=== PATIENT | female | born 1945 | race African-American/Black ===

== ENCOUNTER 2020-06-01 00:15 | Inpatient (IN) ==
[2020-06-01] MEDS ORDERED: LEVOFLOXACIN INJ 500 MG in PREMIX 1 EACH IV STA (00:57)
[2020-06-01 01:00] LABS: Basophils # 0.1 10*3/uL (0.0-0.2); Basophils % 0.4 % (0.0-0.8); Eosinophils % 0.2 % (0.00-10.9); Hematocrit 35.3 VOL% (35.7-47.0); Hemoglobin 11.6 GM/DL (12.0-16.0); Immature Granulocytes % 1.3 %; Immature Granulocytes Absolute 0.17 #; Lymphocytes # 1.4 10*3/uL (1.4-4.0); Lymphocytes % 10.2 % (21.3-54.2); Mean Corpuscular HGB Conc 32.9 GM/DL (32-36); Mean Corpuscular Volume 94.4 FL (87-102); Mean Platelet Volume 10.9 FL (9.6-12.0); NRBC # 0.02 10*3/uL; Neutrophils % 81.9 % (38.7-73.9); Platelet Count 337 T/CUMM (130-400); Red Blood Count 3.74 MC/CUMM (3.8-5.5); White Blood Count 13.6 T/CUMM (4-12)
[2020-06-01 01:01] LABS: INR 1.1; PT Patient Result 11.3 SECS (9.8-11.9)
[2020-06-01 01:19] LABS: Albumin 3.3 G/DL (3.4-5.0); Bilirubin,Total 0.9 MG/DL (0.2-1.0); Calcium 9.2 MG/DL (8.5-10.1); Osmolality,Calculated 284.4 MOS/KG (273-304); Total Protein 7.1 G/DL (6.4-8.3)
[2020-06-01] MEDS ORDERED: ENOXAPARIN 30 MG/0.3 ML SYRINGE SUBCUT STA (01:23)
[2020-06-01] MEDS ORDERED: ENOXAPARIN 80 MG/0.8 ML SYRINGE SUBCUT ONE (01:27)
[2020-06-01] MEDS ORDERED: GLUCAGON 1 MG VIAL IM PRN ×2 (02:23→03:54)
[2020-06-01] MEDS ORDERED: ACETAMINOPHEN 325 MG TABLET PO PRN (02:23)
[2020-06-01] MEDS ORDERED: DEXTROSE 50% 25 GM/50 ML VIAL IV PRN (02:23)
[2020-06-01] MEDS ORDERED: DEXTROSE 50% 25 GM/50 ML SYRINGE IV PRN (03:54)
[2020-06-01] MEDS ORDERED: MORPHINE 4 MG/1 ML VIAL ONE (05:13)
[2020-06-01] MEDS: MORPHINE 4 MG/1 ML VIAL IV PRN ×4 (05:14→21:53)
[2020-06-01] MEDS: ONDANSETRON 4 MG/2 ML VIAL IV PRN ×2 (05:14→09:54)
[2020-06-01 06:48] LABS: Basophils % 0.3 % (0.0-0.8); Eosinophils % 0.1 % (0.00-10.9); Hematocrit 32.9 VOL% (35.7-47.0); Immature Granulocytes % 1.3 %; Immature Granulocytes Absolute 0.15 #; Lymphocytes # 1.3 10*3/uL (1.4-4.0); Lymphocytes % 11.4 % (21.3-54.2); Mean Corpuscular HGB Conc 33.4 GM/DL (32-36); Mean Corpuscular Volume 93.7 FL (87-102); Mean Platelet Volume 10.6 FL (9.6-12.0); Monocytes % 6.6 % (1.7-12.7); Neutrophils % 80.3 % (38.7-73.9); Platelet Count 307 T/CUMM (130-400); Red Blood Count 3.51 MC/CUMM (3.8-5.5); Red Cell Distribution Width 15.3 % (9.3-17.3); White Blood Count 11.6 T/CUMM (4-12)
[2020-06-01] MEDS: INSULIN REGULAR 100 UNIT/ML SUBCUT SCH ×4 (07:33→21:45)
[2020-06-01 07:36] LABS: Bilirubin,Total 0.6 MG/DL (0.2-1.0); Calcium 9.1 MG/DL (8.5-10.1); Ferritin 564.8 ng/ml (8-252); Osmolality,Calculated 284.4 MOS/KG (273-304); Total Protein 6.3 G/DL (6.4-8.3)
[2020-06-01] MEDS: PANTOPRAZOLE 40 MG TABLET PO SCH (09:54)
[2020-06-01] MEDS: DEXAMETHASONE 10 MG/1 ML VIAL IV SCH (09:54)
[2020-06-01 10:14] LABS: Troponin I 0.243 NG/ML (0.00-0.045)
[2020-06-01] MEDS ORDERED: NITROGLYCERIN SL 0.4 MG TABLET SL PRN (11:07)
[2020-06-01] MEDS ORDERED: FLUTICASONE 50 MCG NASAL SPRAY 16 GM BOTTLE BOTH NARES PRN (11:08)
[2020-06-01] MEDS ORDERED: ALBUTEROL INHALER 18 GM INH PRN (11:08)
[2020-06-01] MEDS: ASCORBIC ACID 500 MG TABLET PO SCH (11:11)
[2020-06-01] MEDS: ZINC SULFATE 220 MG CAPSULE PO SCH (11:12)
[2020-06-01] MEDS: CHOLECALCIFEROL 1,000 UNIT TABLET PO SCH (11:12)
[2020-06-01 11:53] LABS: Bilirubin,Urine Small mg/dL (Negative); Blood, Urine Negative (Negative); Glucose,Urine (UA) Negative (Negative); Hyaline Casts,Urine 13 /LPF (0-3); Ketones,Urine Negative (Negative); Mucus,Urine Many /LPF (Occasional); Nitrite,Urine Negative (Negative); Protein,Urine 30 MG/DL; RBC,Urine 3 /HPF (0-4); Squamous Epithelial Cell,Urine Moderate /HPF (0-10); Urine Appearance Slightly Hazy (Clear); Urine Color Amber (Yellow); Urine Specific Gravity 1.028 (1.001-1.035); WBC,Urine 2 /HPF (0-6)
[2020-06-01] MEDS ORDERED: SODIUM CHLORIDE 0.9% 100 ML IV ONE (12:02)
[2020-06-01] MEDS: AZITHROMYCIN 250 MG TABLET PO SCH (12:08)
[2020-06-01] MEDS: cefTRIAXone 1,000 MG in SYRINGE 1 EACH IV SCH (12:08)
[2020-06-01 12:36] LABS: Troponin I 0.266 NG/ML (0.00-0.045)
[2020-06-01] MEDS: PREGABALIN 75 MG CAPSULE PO SCH ×2 (15:55→21:45)
[2020-06-01 16:47] LABS: Cancer Antigen 19-9 28.2 U/ML (0-37); Carcinoembryonic Antigen 0.6 NG/ML (0.0-5.0)
[2020-06-01] MEDS: ENOXAPARIN 40 MG/0.4 ML SYRINGE SUBCUT SCH (21:45)
[2020-06-01] MEDS: CETIRIZINE 10 MG TABLET PO SCH (21:45)
[2020-06-01] MEDS: ZALEPLON 5 MG CAPSULE PO PRN (21:53)
[2020-06-02 05:01] LABS: Basophils % 0.1 % (0.0-0.8); Hematocrit 32.2 VOL% (35.7-47.0); Hemoglobin 10.8 GM/DL (12.0-16.0); Immature Granulocytes % 1.2 %; Immature Granulocytes Absolute 0.12 #; Lymphocytes # 1.1 10*3/uL (1.4-4.0); Lymphocytes % 10.2 % (21.3-54.2); Mean Corpuscular HGB Conc 33.5 GM/DL (32-36); Mean Corpuscular Volume 92.8 FL (87-102); Mean Platelet Volume 11.3 FL (9.6-12.0); Monocytes % 5.6 % (1.7-12.7); Neutrophils % 82.9 % (38.7-73.9); Platelet Count 331 T/CUMM (130-400); Red Blood Count 3.47 MC/CUMM (3.8-5.5); White Blood Count 10.3 T/CUMM (4-12)
[2020-06-02 05:18] LABS: Calcium 8.7 MG/DL (8.5-10.1)
[2020-06-02] MEDS ORDERED: ERGOCALCIFEROL 50,000 UNIT CAPSULE PO SCH (09:00)
[2020-06-02] MEDS: PANTOPRAZOLE 40 MG TABLET PO SCH (09:12)
[2020-06-02] MEDS: MELOXICAM 7.5 MG TABLET PO SCH (09:12)
[2020-06-02] MEDS: amLODIPine 5 MG TABLET PO SCH (09:12)
[2020-06-02] MEDS: LINACLOTIDE 145 MCG CAPSULE PO SCH (09:13)
[2020-06-02] MEDS: lisinopriL 20 MG TABLET PO SCH (09:13)
[2020-06-02] MEDS: PREGABALIN 75 MG CAPSULE PO SCH ×3 (09:14→21:03)
[2020-06-02] MEDS: POTASSIUM CHLORIDE 20 MEQ TABLET PO SCH (09:14)
[2020-06-02] MEDS: INSULIN REGULAR 100 UNIT/ML SUBCUT SCH ×4 (09:14→21:03)
[2020-06-02] MEDS: ATORVASTATIN 40 MG TABLET PO SCH (09:14)
[2020-06-02] MEDS: FUROSEMIDE 20 MG TABLET PO SCH (09:14)
[2020-06-02] MEDS: LEVOTHYROXINE 50 MCG TABLET PO SCH (09:15)
[2020-06-02] MEDS ORDERED: CYANOCOBALAMIN 1000 MCG/1 ML VIAL SUBCUT ONE (11:27)
[2020-06-02] MEDS: ASPIRIN EC 81 MG TABLET PO SCH (12:30)
[2020-06-02] MEDS: AZITHROMYCIN 250 MG TABLET PO SCH (12:31)
[2020-06-02] MEDS: cefTRIAXone 1,000 MG in SYRINGE 1 EACH IV SCH (12:31)
[2020-06-02] MEDS: DEXAMETHASONE 10 MG/1 ML VIAL IV SCH (12:31)
[2020-06-02] MEDS: CHOLECALCIFEROL 1,000 UNIT TABLET PO SCH (12:32)
[2020-06-02] MEDS: BISACODYL 5 MG TABLET PO PRN (12:35)
[2020-06-02] MEDS: ASCORBIC ACID 500 MG TABLET PO SCH (15:03)
[2020-06-02] MEDS: CETIRIZINE 10 MG TABLET PO SCH (21:03)
[2020-06-02] MEDS: ENOXAPARIN 40 MG/0.4 ML SYRINGE SUBCUT SCH (21:03)
[2020-06-03 05:20] LABS: Basophils % 0.2 % (0.0-0.8); Hematocrit 31.9 VOL% (35.7-47.0); Hemoglobin 10.6 GM/DL (12.0-16.0); Immature Granulocytes Absolute 0.12 #; Lymphocytes # 0.9 10*3/uL (1.4-4.0); Lymphocytes % 7.4 % (21.3-54.2); Mean Corpuscular HGB Conc 33.2 GM/DL (32-36); Mean Corpuscular Volume 94.1 FL (87-102); Mean Platelet Volume 11.7 FL (9.6-12.0); Monocytes % 3.5 % (1.7-12.7); Neutrophils % 87.9 % (38.7-73.9); Platelet Count 286 T/CUMM (130-400); Red Blood Count 3.39 MC/CUMM (3.8-5.5); Red Cell Distribution Width 14.8 % (9.3-17.3); White Blood Count 11.9 T/CUMM (4-12)
[2020-06-03 05:50] LABS: Calcium 8.6 MG/DL (8.5-10.1); Osmolality,Calculated 282.7 MOS/KG (273-304)
[2020-06-03] MEDS: LEVOTHYROXINE 50 MCG TABLET PO SCH (06:03)
[2020-06-03] MEDS ORDERED: PROMETHAZINE 25 MG/1 ML VIAL IM ONE (07:30)
[2020-06-03] MEDS ORDERED: GLYCOPYRROLATE 0.4 MG/2 ML VIAL IM ONE ×2 (07:30→08:00)
[2020-06-03] MEDS ORDERED: MEPERIDINE 50 MG/1 ML VIAL IM ONE (07:30)
[2020-06-03] MEDS ORDERED: LIDOCAINE 2% VISCOUS 100 ML BOTTLE SWISH/SPIT ONE (08:00)
[2020-06-03] MEDS ORDERED: LIDOCAINE 1% 20 ML VIAL MISC INJ ONE (08:00)
[2020-06-03] MEDS ORDERED: LIDOCAINE 2% 20 ML VIAL RESP TX ONE (08:00)
[2020-06-03] MEDS ORDERED: MIDAZOLAM 2 MG/2 ML VIAL IV ONE (08:00)
[2020-06-03] MEDS: INSULIN REGULAR 100 UNIT/ML SUBCUT SCH ×4 (08:01→20:46)
[2020-06-03] MEDS: DEXAMETHASONE 10 MG/1 ML VIAL IV SCH (08:02)
[2020-06-03] MEDS: FUROSEMIDE 20 MG TABLET PO SCH (10:41)
[2020-06-03] MEDS: ZINC SULFATE 220 MG CAPSULE PO SCH (10:41)
[2020-06-03] MEDS: PANTOPRAZOLE 40 MG TABLET PO SCH (10:41)
[2020-06-03] MEDS: ASPIRIN EC 81 MG TABLET PO SCH (10:42)
[2020-06-03] MEDS: PREGABALIN 75 MG CAPSULE PO SCH ×3 (10:42→20:47)
[2020-06-03] MEDS: lisinopriL 20 MG TABLET PO SCH (10:42)
[2020-06-03] MEDS: POTASSIUM CHLORIDE 20 MEQ TABLET PO SCH (10:42)
[2020-06-03] MEDS: CHOLECALCIFEROL 1,000 UNIT TABLET PO SCH (10:42)
[2020-06-03] MEDS: ASCORBIC ACID 500 MG TABLET PO SCH (10:42)
[2020-06-03] MEDS: amLODIPine 5 MG TABLET PO SCH (10:42)
[2020-06-03] MEDS: ATORVASTATIN 40 MG TABLET PO SCH (10:42)
[2020-06-03] MEDS: LINACLOTIDE 145 MCG CAPSULE PO SCH (10:43)
[2020-06-03] MEDS: MELOXICAM 7.5 MG TABLET PO SCH (10:49)
[2020-06-03] MEDS: AZITHROMYCIN 250 MG TABLET PO SCH (13:51)
[2020-06-03] MEDS: cefTRIAXone 1,000 MG in SYRINGE 1 EACH IV SCH (13:51)
[2020-06-03] MEDS: ENOXAPARIN 40 MG/0.4 ML SYRINGE SUBCUT SCH (20:46)
[2020-06-03] MEDS: MORPHINE 4 MG/1 ML VIAL IV PRN (20:47)
[2020-06-03] MEDS: CETIRIZINE 10 MG TABLET PO SCH (20:48)
[2020-06-04 06:55] LABS: Basophils % 0.2 % (0.0-0.8); Hematocrit 35.3 VOL% (35.7-47.0); Hemoglobin 11.6 GM/DL (12.0-16.0); Immature Granulocytes % 1.8 %; Immature Granulocytes Absolute 0.28 #; Lymphocytes # 1.6 10*3/uL (1.4-4.0); Lymphocytes % 10.4 % (21.3-54.2); Mean Corpuscular HGB Conc 32.9 GM/DL (32-36); Mean Corpuscular Volume 94.1 FL (87-102); Monocytes % 5.6 % (1.7-12.7); Platelet Count 318 T/CUMM (130-400); Red Blood Count 3.75 MC/CUMM (3.8-5.5); Red Cell Distribution Width 14.8 % (9.3-17.3); White Blood Count 15.4 T/CUMM (4-12)
[2020-06-04 07:16] LABS: Calcium 9.1 MG/DL (8.5-10.1); Osmolality,Calculated 286.4 MOS/KG (273-304)
[2020-06-04] MEDS: INSULIN REGULAR 100 UNIT/ML SUBCUT SCH ×4 (07:51→21:46)
[2020-06-04] MEDS: MELOXICAM 7.5 MG TABLET PO SCH (09:05)
[2020-06-04] MEDS: ASCORBIC ACID 500 MG TABLET PO SCH (09:05)
[2020-06-04] MEDS: lisinopriL 20 MG TABLET PO SCH (09:05)
[2020-06-04] MEDS: FUROSEMIDE 20 MG TABLET PO SCH (09:06)
[2020-06-04] MEDS: CHOLECALCIFEROL 1,000 UNIT TABLET PO SCH (09:06)
[2020-06-04] MEDS: ASPIRIN EC 81 MG TABLET PO SCH (09:06)
[2020-06-04] MEDS: PREGABALIN 75 MG CAPSULE PO SCH ×3 (09:06→21:46)
[2020-06-04] MEDS: ATORVASTATIN 40 MG TABLET PO SCH (09:06)
[2020-06-04] MEDS: POTASSIUM CHLORIDE 20 MEQ TABLET PO SCH (09:06)
[2020-06-04] MEDS: LEVOTHYROXINE 50 MCG TABLET PO SCH (09:07)
[2020-06-04] MEDS: DEXAMETHASONE 10 MG/1 ML VIAL IV SCH (09:07)
[2020-06-04] MEDS: LINACLOTIDE 145 MCG CAPSULE PO SCH (09:07)
[2020-06-04] MEDS: amLODIPine 5 MG TABLET PO SCH (09:07)
[2020-06-04] MEDS: PANTOPRAZOLE 40 MG TABLET PO SCH (09:13)
[2020-06-04] MEDS: MORPHINE 4 MG/1 ML VIAL IV PRN ×3 (09:14→21:46)
[2020-06-04] MEDS: AZITHROMYCIN 250 MG TABLET PO SCH (11:41)
[2020-06-04] MEDS: cefTRIAXone 1,000 MG in SYRINGE 1 EACH IV SCH (11:42)
[2020-06-04] MEDS: CETIRIZINE 10 MG TABLET PO SCH (21:46)
[2020-06-04] MEDS: ZALEPLON 5 MG CAPSULE PO PRN (21:46)
[2020-06-04] MEDS: ENOXAPARIN 40 MG/0.4 ML SYRINGE SUBCUT SCH (21:46)
[2020-06-05] MEDS: LEVOTHYROXINE 50 MCG TABLET PO SCH (06:25)
[2020-06-05] MEDS: MORPHINE 4 MG/1 ML VIAL IV PRN ×4 (06:40→21:33)
[2020-06-05 06:44] LABS: Basophils % 0.2 % (0.0-0.8); Hematocrit 33.1 VOL% (35.7-47.0); Immature Granulocytes % 2.3 %; Immature Granulocytes Absolute 0.34 #; Lymphocytes # 1.4 10*3/uL (1.4-4.0); Lymphocytes % 9.3 % (21.3-54.2); Mean Corpuscular HGB Conc 33.2 GM/DL (32-36); Mean Corpuscular Volume 92.5 FL (87-102); Mean Platelet Volume 11.6 FL (9.6-12.0); Monocytes % 5.9 % (1.7-12.7); NRBC # 0.02 10*3/uL; Neutrophils % 82.3 % (38.7-73.9); Platelet Count 291 T/CUMM (130-400); Red Blood Count 3.58 MC/CUMM (3.8-5.5); Red Cell Distribution Width 14.6 % (9.3-17.3)
[2020-06-05] MEDS: INSULIN REGULAR 100 UNIT/ML SUBCUT SCH ×4 (07:35→21:35)
[2020-06-05 08:19] LABS: Calcium 8.8 MG/DL (8.5-10.1); Osmolality,Calculated 285.4 MOS/KG (273-304)
[2020-06-05] MEDS: LINACLOTIDE 145 MCG CAPSULE PO SCH (08:30)
[2020-06-05] MEDS: PREGABALIN 75 MG CAPSULE PO SCH ×3 (08:30→21:35)
[2020-06-05] MEDS: lisinopriL 20 MG TABLET PO SCH (08:30)
[2020-06-05] MEDS: ASPIRIN EC 81 MG TABLET PO SCH (08:30)
[2020-06-05] MEDS: ATORVASTATIN 40 MG TABLET PO SCH (08:31)
[2020-06-05] MEDS: CHOLECALCIFEROL 1,000 UNIT TABLET PO SCH (08:31)
[2020-06-05] MEDS: MELOXICAM 7.5 MG TABLET PO SCH (08:31)
[2020-06-05] MEDS: PANTOPRAZOLE 40 MG TABLET PO SCH (08:31)
[2020-06-05] MEDS: POTASSIUM CHLORIDE 20 MEQ TABLET PO SCH (08:31)
[2020-06-05] MEDS: ASCORBIC ACID 500 MG TABLET PO SCH (08:31)
[2020-06-05] MEDS: FUROSEMIDE 20 MG TABLET PO SCH (08:31)
[2020-06-05] MEDS: DEXAMETHASONE 10 MG/1 ML VIAL IV SCH (08:32)
[2020-06-05] MEDS: amLODIPine 5 MG TABLET PO SCH (08:42)
[2020-06-05] MEDS: ZINC SULFATE 220 MG CAPSULE PO SCH (11:24)
[2020-06-05] MEDS: AZITHROMYCIN 250 MG TABLET PO SCH (13:28)
[2020-06-05] MEDS: cefTRIAXone 1,000 MG in SYRINGE 1 EACH IV SCH (13:28)
[2020-06-05] MEDS: CETIRIZINE 10 MG TABLET PO SCH (21:35)
[2020-06-05] MEDS: ENOXAPARIN 40 MG/0.4 ML SYRINGE SUBCUT SCH (21:35)
[2020-06-06 06:47] LABS: Basophils % 0.2 % (0.0-0.8); Eosinophils % 0.1 % (0.00-10.9); Hematocrit 33.7 VOL% (35.7-47.0); Hemoglobin 11.3 GM/DL (12.0-16.0); Immature Granulocytes % 4.4 %; Immature Granulocytes Absolute 0.83 #; Lymphocytes # 1.8 10*3/uL (1.4-4.0); Lymphocytes % 9.3 % (21.3-54.2); Mean Corpuscular HGB Conc 33.5 GM/DL (32-36); Mean Corpuscular Volume 92.1 FL (87-102); Mean Platelet Volume 11.7 FL (9.6-12.0); Monocytes % 6.9 % (1.7-12.7); NRBC # 0.02 10*3/uL; Neutrophils % 79.1 % (38.7-73.9); Platelet Count 307 T/CUMM (130-400); Red Blood Count 3.66 MC/CUMM (3.8-5.5); Red Cell Distribution Width 14.8 % (9.3-17.3); White Blood Count 18.9 T/CUMM (4-12)
[2020-06-06 06:58] LABS: Calcium 8.9 MG/DL (8.5-10.1); Osmolality,Calculated 282.7 MOS/KG (273-304)
[2020-06-06] MEDS: INSULIN REGULAR 100 UNIT/ML SUBCUT SCH ×4 (07:27→21:42)
[2020-06-06] MEDS: LEVOTHYROXINE 50 MCG TABLET PO SCH (08:06)
[2020-06-06] MEDS: lisinopriL 20 MG TABLET PO SCH (09:15)
[2020-06-06] MEDS: MELOXICAM 7.5 MG TABLET PO SCH (09:15)
[2020-06-06] MEDS: CHOLECALCIFEROL 1,000 UNIT TABLET PO SCH (09:16)
[2020-06-06] MEDS: ASCORBIC ACID 500 MG TABLET PO SCH (09:16)
[2020-06-06] MEDS: FUROSEMIDE 20 MG TABLET PO SCH (09:16)
[2020-06-06] MEDS: BISACODYL 5 MG TABLET PO PRN (09:16)
[2020-06-06] MEDS: ASPIRIN EC 81 MG TABLET PO SCH (09:16)
[2020-06-06] MEDS: amLODIPine 5 MG TABLET PO SCH (09:16)
[2020-06-06] MEDS: PANTOPRAZOLE 40 MG TABLET PO SCH (09:16)
[2020-06-06] MEDS: ATORVASTATIN 40 MG TABLET PO SCH (09:16)
[2020-06-06] MEDS: DEXAMETHASONE 10 MG/1 ML VIAL IV SCH (09:17)
[2020-06-06] MEDS: POTASSIUM CHLORIDE 20 MEQ TABLET PO SCH (09:36)
[2020-06-06] MEDS: MORPHINE 4 MG/1 ML VIAL IV PRN (09:37)
[2020-06-06 12:51] LABS: Lymphocytes 18 % (20-55); Platelet Estimate Adequate; Segmented Neutrophils 77 % (50-85); Total Cells Counted 100
[2020-06-06 12:53] LABS: Anisocytosis 1+; Microcytosis 1+
[2020-06-06 12:54] LABS: Schistocytes Few
[2020-06-06] MEDS: AZITHROMYCIN 250 MG TABLET PO SCH (13:08)
[2020-06-06] MEDS: cefTRIAXone 1,000 MG in SYRINGE 1 EACH IV SCH (13:08)
[2020-06-06] MEDS: LINACLOTIDE 145 MCG CAPSULE PO SCH (13:49)
[2020-06-06] MEDS: PREGABALIN 75 MG CAPSULE PO SCH ×3 (13:49→21:42)
[2020-06-06] MEDS: ENOXAPARIN 40 MG/0.4 ML SYRINGE SUBCUT SCH (21:42)
[2020-06-06] MEDS: CETIRIZINE 10 MG TABLET PO SCH (21:43)
[2020-06-06] MEDS: ZALEPLON 5 MG CAPSULE PO PRN (21:46)
[2020-06-07 05:16] LABS: Basophils # 0.1 10*3/uL (0.0-0.2); Basophils % 0.3 % (0.0-0.8); Eosinophils % 0.1 % (0.00-10.9); Hematocrit 33.5 VOL% (35.7-47.0); Hemoglobin 11.2 GM/DL (12.0-16.0); Immature Granulocytes % 4.3 %; Immature Granulocytes Absolute 0.86 #; Lymphocytes # 1.9 10*3/uL (1.4-4.0); Lymphocytes % 9.6 % (21.3-54.2); Mean Corpuscular HGB Conc 33.4 GM/DL (32-36); Mean Corpuscular Volume 92.5 FL (87-102); Mean Platelet Volume 11.6 FL (9.6-12.0); Monocytes % 6.9 % (1.7-12.7); NRBC # 0.02 10*3/uL; Neutrophils % 78.8 % (38.7-73.9); Platelet Count 277 T/CUMM (130-400); Red Blood Count 3.62 MC/CUMM (3.8-5.5); Red Cell Distribution Width 14.8 % (9.3-17.3); White Blood Count 19.8 T/CUMM (4-12)
[2020-06-07 05:38] LABS: Calcium 8.8 MG/DL (8.5-10.1); Osmolality,Calculated 286.4 MOS/KG (273-304)
[2020-06-07 05:40] LABS: Hypochromasia 1+; Lymphocytes 9 % (20-55); Segmented Neutrophils 83 % (50-85); Total Cells Counted 100
[2020-06-07 05:41] LABS: Microcytosis 1+; Ovalocytes Slight
[2020-06-07 05:42] LABS: Platelet Estimate Normal
[2020-06-07] MEDS: LEVOTHYROXINE 50 MCG TABLET PO SCH (06:36)
[2020-06-07] MEDS: INSULIN REGULAR 100 UNIT/ML SUBCUT SCH ×2 (08:47→14:19)
[2020-06-07] MEDS: DEXAMETHASONE 10 MG/1 ML VIAL IV SCH (08:48)
[2020-06-07] MEDS: amLODIPine 5 MG TABLET PO SCH (08:49)
[2020-06-07] MEDS: ATORVASTATIN 40 MG TABLET PO SCH (08:49)
[2020-06-07] MEDS: ZINC SULFATE 220 MG CAPSULE PO SCH (08:49)
[2020-06-07] MEDS: ASCORBIC ACID 500 MG TABLET PO SCH (08:49)
[2020-06-07] MEDS: ASPIRIN EC 81 MG TABLET PO SCH (08:49)
[2020-06-07] MEDS: lisinopriL 20 MG TABLET PO SCH (08:49)
[2020-06-07] MEDS: POTASSIUM CHLORIDE 20 MEQ TABLET PO SCH (08:49)
[2020-06-07] MEDS: FUROSEMIDE 20 MG TABLET PO SCH (08:49)
[2020-06-07] MEDS: MELOXICAM 7.5 MG TABLET PO SCH (08:49)
[2020-06-07] MEDS: CHOLECALCIFEROL 1,000 UNIT TABLET PO SCH (08:49)
[2020-06-07] MEDS: PREGABALIN 75 MG CAPSULE PO SCH ×2 (08:49→16:04)
[2020-06-07] MEDS: PANTOPRAZOLE 40 MG TABLET PO SCH (08:49)
[2020-06-07] MEDS: LINACLOTIDE 145 MCG CAPSULE PO SCH (10:30)
[2020-06-07] MEDS ORDERED: ALBUTEROL/IPRATROPIUM 3 ML NEB RESP TX ONE (10:39)
[2020-06-07] MEDS: cefTRIAXone 1,000 MG in SYRINGE 1 EACH IV SCH (14:20)
[2020-06-07] MEDS: AZITHROMYCIN 250 MG TABLET PO SCH (14:20)
[2020-06-07 15:29] VITALS: BP 160/73
[2020-06-07] MEDS ORDERED: METOPROLOL TARTRATE 25 MG TABLET PO SCH (21:00)
== END 2020-06-07 16:21 | disposition home health service (06) | DRG 166 ==
LOC: EDBD → EDUNIT# → N.EDINP 00:15 → N.ED 00:15 → SUATTDRO 03:00 → N.EDINP 14:15 → N.2E 15:28 → N.4E 06-05 09:42 → N.TELES 06-05 17:59
PROVIDERS: ADMIT Internal Medicine; ATTEND Internal Medicine
PROC: BRONCHB (2020-06-03 08:20)

== ENCOUNTER 2020-06-16 15:02 | Inpatient (IN) ==
[2020-06-16 18:27] LABS: Basophils # 0.1 10*3/uL (0.0-0.2); Basophils % 0.3 % (0.0-0.8); Eosinophils % 0.1 % (0.00-10.9); Hematocrit 35.3 VOL% (35.7-47.0); Hemoglobin 11.8 GM/DL (12.0-16.0); Immature Granulocytes % 5.9 %; Immature Granulocytes Absolute 1.08 #; Lymphocytes # 1.7 10*3/uL (1.4-4.0); Lymphocytes % 9.2 % (21.3-54.2); Mean Corpuscular HGB Conc 33.4 GM/DL (32-36); Mean Corpuscular Volume 91.5 FL (87-102); Monocytes % 4.9 % (1.7-12.7); NRBC # 0.05 10*3/uL; Neutrophils % 79.6 % (38.7-73.9); Platelet Count 177 T/CUMM (130-400); Red Blood Count 3.86 MC/CUMM (3.8-5.5); Red Cell Distribution Width 15.9 % (9.3-17.3); White Blood Count 18.2 T/CUMM (4-12)
[2020-06-16 18:48] LABS: Albumin 2.8 G/DL (3.4-5.0); Bilirubin,Total 0.7 MG/DL (0.2-1.0); Calcium 9.5 MG/DL (8.5-10.1); Osmolality,Calculated 291.3 MOS/KG (273-304); Potassium 4.8 MMOL/L (3.5-5.1); Total Protein 6.5 G/DL (6.4-8.3)
[2020-06-16 18:53] LABS: Hypochromasia 1+; Lymphocytes 9 % (20-55); Polychromasia Slight; Segmented Neutrophils 84 % (50-85); Total Cells Counted 100
[2020-06-16] MEDS ORDERED: SODIUM CHLORIDE 0.9% 500 ML IV STA (18:53)
[2020-06-16 18:54] LABS: Anisocytosis Slight; Platelet Estimate Adequate
[2020-06-16 19:07] LABS: Bilirubin,Urine Negative (Negative); Blood, Urine Negative (Negative); Glucose,Urine (UA) Negative (Negative); Hyaline Casts,Urine 3 /LPF (0-3); Ketones,Urine 5 mg/dL (Negative); Mucus,Urine Occasional /LPF (Occasional); Nitrite,Urine Negative (Negative); Protein,Urine Negative; RBC,Urine <1 /HPF (0-4); Squamous Epithelial Cell,Urine Occasional /HPF (0-10); Urine Appearance CLEAR (Clear); Urine Color Yellow (Yellow); Urine Specific Gravity 1.019 (1.001-1.035); Urine Urobilinogen < 2.0 EU/DL (0.2-1.0); WBC,Urine 1 /HPF (0-6)
[2020-06-16] MEDS ORDERED: DEXTROSE 50% 25 GM/50 ML VIAL IV PRN (20:23)
[2020-06-16] MEDS ORDERED: GLUCAGON 1 MG VIAL IM PRN (20:23)
[2020-06-16] MEDS ORDERED: ACETAMINOPHEN 325 MG TABLET PO PRN (20:23)
[2020-06-16] MEDS: MORPHINE 4 MG/1 ML VIAL IV PRN (21:29)
[2020-06-16] MEDS ORDERED: NICOTINE 21 MG/24 HR PATCH TRANSDERM PRN (22:00)
[2020-06-16] MEDS: INSULIN LISPRO 100 UNIT/ML SUBCUT SCH (22:43)
[2020-06-17] MEDS: MORPHINE 4 MG/1 ML VIAL IV PRN ×4 (01:56→16:28)
[2020-06-17 04:51] LABS: Basophils # 0.1 10*3/uL (0.0-0.2); Basophils % 0.3 % (0.0-0.8); Eosinophils % 0.1 % (0.00-10.9); Hematocrit 33.5 VOL% (35.7-47.0); Hemoglobin 10.8 GM/DL (12.0-16.0); Immature Granulocytes % 4.8 %; Immature Granulocytes Absolute 0.78 #; Lymphocytes # 1.8 10*3/uL (1.4-4.0); Lymphocytes % 11.1 % (21.3-54.2); Mean Corpuscular HGB Conc 32.2 GM/DL (32-36); Mean Corpuscular Volume 92.5 FL (87-102); Mean Platelet Volume 10.1 FL (9.6-12.0); Monocytes % 6.1 % (1.7-12.7); NRBC # 0.04 10*3/uL; Neutrophils % 77.6 % (38.7-73.9); Platelet Count 169 T/CUMM (130-400); Red Blood Count 3.62 MC/CUMM (3.8-5.5); Red Cell Distribution Width 15.4 % (9.3-17.3); White Blood Count 16.2 T/CUMM (4-12)
[2020-06-17 05:13] LABS: Albumin 2.6 G/DL (3.4-5.0); Bilirubin,Total 1.7 MG/DL (0.2-1.0); Calcium 9.2 MG/DL (8.5-10.1); Osmolality,Calculated 287.4 MOS/KG (273-304); Potassium 4.5 MMOL/L (3.5-5.1); Total Protein 6.2 G/DL (6.4-8.3)
[2020-06-17 05:14] LABS: Band Neutrophils 1 % (0-10); Hypochromasia 1+; Lymphocytes 9 % (20-55); Microcytosis 1+; Platelet Estimate Adequate; Segmented Neutrophils 86 % (50-85); Total Cells Counted 100
[2020-06-17] MEDS: ALBUTEROL/IPRATROPIUM 3 ML NEB RESP TX PRN (08:27)
[2020-06-17 10:19] LABS: PT Patient Result 11.2 SECS (9.8-11.9)
[2020-06-17] MEDS: SODIUM CHLORIDE 0.9% 1,000 ML IV SCH (10:39)
[2020-06-17] MEDS ORDERED: ALBUTEROL 2.5 MG/3 ML NEB RESP TX PRN (12:07)
[2020-06-17] MEDS: INSULIN LISPRO 100 UNIT/ML SUBCUT SCH ×3 (12:11→20:38)
[2020-06-17] MEDS ORDERED: MELOXICAM 7.5 MG TABLET PO PRN (12:15)
[2020-06-17] MEDS ORDERED: tiZANidine 4 MG TABLET PO PRN (12:57)
[2020-06-17] MEDS ORDERED: FUROSEMIDE 20 MG TABLET PO PRN (12:57)
[2020-06-17] MEDS: PREGABALIN 75 MG CAPSULE PO SCH ×2 (16:29→20:47)
[2020-06-17] MEDS: METOPROLOL TARTRATE 25 MG TABLET PO SCH ×2 (16:29→20:47)
[2020-06-17] MEDS: ERGOCALCIFEROL 50,000 UNIT CAPSULE PO SCH (16:30)
[2020-06-17] MEDS: CETIRIZINE 10 MG TABLET PO SCH (20:47)
[2020-06-18] MEDS: LEVOTHYROXINE 50 MCG TABLET PO SCH (05:36)
[2020-06-18] MEDS: INSULIN LISPRO 100 UNIT/ML SUBCUT SCH ×4 (08:05→20:07)
[2020-06-18] MEDS ORDERED: MAGNESIUM HYDROXIDE SUSP 30 ML UDCUP PO PRN (08:09)
[2020-06-18] MEDS ORDERED: lisinopriL 20 MG TABLET PO SCH (09:00)
[2020-06-18] MEDS ORDERED: ATORVASTATIN 40 MG TABLET PO SCH (09:00)
[2020-06-18] MEDS: METOPROLOL TARTRATE 25 MG TABLET PO SCH ×2 (10:27→20:15)
[2020-06-18] MEDS: ASPIRIN EC 81 MG TABLET PO SCH (10:27)
[2020-06-18] MEDS: PREGABALIN 75 MG CAPSULE PO SCH ×3 (10:27→20:14)
[2020-06-18] MEDS: ASCORBIC ACID 500 MG TABLET PO SCH (10:32)
[2020-06-18] MEDS: LINACLOTIDE 145 MCG CAPSULE PO SCH (10:32)
[2020-06-18] MEDS: SODIUM CHLORIDE 0.9% 1,000 ML IV SCH ×2 (16:22→22:44)
[2020-06-18] MEDS: CETIRIZINE 10 MG TABLET PO SCH (20:14)
[2020-06-19] MEDS: SODIUM CHLORIDE 0.9% 1,000 ML IV SCH ×2 (05:06→18:25)
[2020-06-19] MEDS: MORPHINE 4 MG/1 ML VIAL IV PRN (05:13)
[2020-06-19] MEDS: LEVOTHYROXINE 50 MCG TABLET PO SCH (05:20)
[2020-06-19] MEDS: INSULIN LISPRO 100 UNIT/ML SUBCUT SCH ×4 (07:35→20:06)
[2020-06-19 08:49] LABS: Basophils % 0.2 % (0.0-0.8); Eosinophils % 0.3 % (0.00-10.9); Hemoglobin 9.8 GM/DL (12.0-16.0); Immature Granulocytes % 3.8 %; Immature Granulocytes Absolute 0.51 #; Lymphocytes # 1.1 10*3/uL (1.4-4.0); Lymphocytes % 8.5 % (21.3-54.2); Mean Corpuscular HGB Conc 31.6 GM/DL (32-36); Mean Corpuscular Volume 95.1 FL (87-102); Mean Platelet Volume 11.7 FL (9.6-12.0); Monocytes % 6.1 % (1.7-12.7); NRBC # 0.04 10*3/uL; Neutrophils % 81.1 % (38.7-73.9); Platelet Count 181 T/CUMM (130-400); Red Blood Count 3.26 MC/CUMM (3.8-5.5); Red Cell Distribution Width 15.6 % (9.3-17.3); White Blood Count 13.3 T/CUMM (4-12)
[2020-06-19] MEDS: METOPROLOL TARTRATE 25 MG TABLET PO SCH ×2 (08:57→20:06)
[2020-06-19] MEDS: LINACLOTIDE 145 MCG CAPSULE PO SCH (08:57)
[2020-06-19] MEDS: ASPIRIN EC 81 MG TABLET PO SCH (08:57)
[2020-06-19] MEDS: ASCORBIC ACID 500 MG TABLET PO SCH (08:58)
[2020-06-19] MEDS: PREGABALIN 75 MG CAPSULE PO SCH ×3 (08:58→20:06)
[2020-06-19 09:15] LABS: Anisocytosis 2+; Lymphocytes 7 % (20-55); Macrocytosis 2+; Nucleated Red Blood Cells 1 (0-5); Platelet Estimate Normal; Segmented Neutrophils 89 % (50-85); Total Cells Counted 100
[2020-06-19 09:23] LABS: Calcium 9.1 MG/DL (8.5-10.1); Potassium 4.7 MMOL/L (3.5-5.1)
[2020-06-19] MEDS: CETIRIZINE 10 MG TABLET PO SCH (20:06)
[2020-06-20] MEDS: LEVOTHYROXINE 50 MCG TABLET PO SCH (05:52)
[2020-06-20 06:02] LABS: Basophils % 0.3 % (0.0-0.8); Eosinophils % 0.3 % (0.00-10.9); Hematocrit 30.4 VOL% (35.7-47.0); Hemoglobin 9.6 GM/DL (12.0-16.0); Immature Granulocytes Absolute 0.47 #; Lymphocytes # 1.2 10*3/uL (1.4-4.0); Lymphocytes % 10.4 % (21.3-54.2); Mean Corpuscular HGB Conc 31.6 GM/DL (32-36); Mean Corpuscular Volume 95.6 FL (87-102); Monocytes % 6.8 % (1.7-12.7); NRBC # 0.05 10*3/uL; Neutrophils % 78.2 % (38.7-73.9); Platelet Count 185 T/CUMM (130-400); Red Blood Count 3.18 MC/CUMM (3.8-5.5); Red Cell Distribution Width 15.7 % (9.3-17.3); White Blood Count 11.6 T/CUMM (4-12)
[2020-06-20 06:20] LABS: Calcium 9.4 MG/DL (8.5-10.1); Potassium 4.7 MMOL/L (3.5-5.1)
[2020-06-20] MEDS: SODIUM CHLORIDE 0.9% 1,000 ML IV SCH ×2 (07:40→20:50)
[2020-06-20] MEDS: INSULIN LISPRO 100 UNIT/ML SUBCUT SCH ×4 (07:45→20:14)
[2020-06-20] MEDS: ASPIRIN EC 81 MG TABLET PO SCH (08:47)
[2020-06-20] MEDS: LINACLOTIDE 145 MCG CAPSULE PO SCH (08:47)
[2020-06-20] MEDS: METOPROLOL TARTRATE 25 MG TABLET PO SCH ×2 (08:47→20:13)
[2020-06-20] MEDS: ASCORBIC ACID 500 MG TABLET PO SCH (09:51)
[2020-06-20] MEDS: PREGABALIN 75 MG CAPSULE PO SCH ×3 (09:51→20:13)
[2020-06-20] MEDS: ALBUTEROL/IPRATROPIUM 3 ML NEB RESP TX PRN (12:43)
[2020-06-20] MEDS: CETIRIZINE 10 MG TABLET PO SCH (20:14)
[2020-06-21] MEDS: LEVOTHYROXINE 50 MCG TABLET PO SCH (06:37)
[2020-06-21] MEDS: INSULIN LISPRO 100 UNIT/ML SUBCUT SCH ×4 (07:08→21:24)
[2020-06-21 08:35] LABS: Uric Acid 10.2 MG/DL (2.6-6.0)
[2020-06-21] MEDS: ASPIRIN EC 81 MG TABLET PO SCH (09:58)
[2020-06-21] MEDS: METOPROLOL TARTRATE 25 MG TABLET PO SCH (09:58)
[2020-06-21] MEDS: ASCORBIC ACID 500 MG TABLET PO SCH (09:59)
[2020-06-21] MEDS: PREGABALIN 75 MG CAPSULE PO SCH ×2 (09:59→15:52)
[2020-06-21] MEDS: LINACLOTIDE 145 MCG CAPSULE PO SCH (10:00)
[2020-06-21] MEDS: SODIUM CHLORIDE 0.9% 1,000 ML IV SCH (10:22)
[2020-06-21] MEDS: allopurinoL 300 MG TABLET PO SCH (17:38)
[2020-06-22] MEDS: CETIRIZINE 10 MG TABLET PO SCH ×2 (03:24→20:35)
[2020-06-22] MEDS: METOPROLOL TARTRATE 25 MG TABLET PO SCH ×3 (03:24→20:35)
[2020-06-22] MEDS: PREGABALIN 75 MG CAPSULE PO SCH ×4 (03:24→20:35)
[2020-06-22] MEDS: LEVOTHYROXINE 50 MCG TABLET PO SCH (05:37)
[2020-06-22] MEDS: INSULIN LISPRO 100 UNIT/ML SUBCUT SCH ×4 (07:01→21:57)
[2020-06-22] MEDS: SODIUM CHLORIDE 0.9% 1,000 ML IV SCH ×2 (07:20→09:50)
[2020-06-22] MEDS ORDERED: DEXAMETHASONE INJ 20 MG in SODIUM CHLORIDE 0.9% 50 ML IV ONE (08:34)
[2020-06-22] MEDS ORDERED: ETOPOSIDE 150 MG in SODIUM CHLORIDE 0.9% 500 ML IV ONE (08:40)
[2020-06-22] MEDS: ASPIRIN EC 81 MG TABLET PO SCH (10:38)
[2020-06-22] MEDS: LINACLOTIDE 145 MCG CAPSULE PO SCH (10:38)
[2020-06-22] MEDS: allopurinoL 300 MG TABLET PO SCH (10:43)
[2020-06-22] MEDS: ASCORBIC ACID 500 MG TABLET PO SCH (10:55)
[2020-06-22] MEDS: SODIUM BICARB INJ 50 MEQ in DEXTROSE 5% 1,000 ML IV SCH (10:56)
[2020-06-22] MEDS: GRANISETRON 1 MG/1 ML VIAL IV SCH (13:26)
[2020-06-23] MEDS: SODIUM CHLORIDE 0.9% 1,000 ML IV SCH ×2 (00:16→19:37)
[2020-06-23] MEDS: SODIUM BICARB INJ 50 MEQ in DEXTROSE 5% 1,000 ML IV SCH ×2 (02:33→19:37)
[2020-06-23 05:35] LABS: Basophils % 0.1 % (0.0-0.8); Hematocrit 30.1 VOL% (35.7-47.0); Hemoglobin 9.7 GM/DL (12.0-16.0); Immature Granulocytes % 2.4 %; Immature Granulocytes Absolute 0.27 #; Lymphocytes # 0.6 10*3/uL (1.4-4.0); Lymphocytes % 5.4 % (21.3-54.2); Mean Corpuscular HGB Conc 32.2 GM/DL (32-36); Mean Corpuscular Volume 94.7 FL (87-102); Mean Platelet Volume 12.1 FL (9.6-12.0); Monocytes % 1.3 % (1.7-12.7); NRBC # 0.04 10*3/uL; Neutrophils % 90.8 % (38.7-73.9); Platelet Count 231 T/CUMM (130-400); Red Blood Count 3.18 MC/CUMM (3.8-5.5); Red Cell Distribution Width 15.8 % (9.3-17.3); White Blood Count 11.2 T/CUMM (4-12)
[2020-06-23] MEDS: LEVOTHYROXINE 50 MCG TABLET PO SCH (06:18)
[2020-06-23 06:26] LABS: Alanine Aminotransferase 18 U/L (13-56); Albumin 2.1 G/DL (3.4-5.0); Alkaline Phosphatase 82 U/L (45-117); Aspartate Amino Transferase 94 U/L (0-37); Bilirubin,Total < 0.39 MG/DL (0.2-1.0); Blood Urea Nitrogen 45 MG/DL (7-18); Calcium 10.3 MG/DL (8.5-10.1); Carbon Dioxide 21 MMOL/L (21-32); Estimated Glom Filtration Rate 73 ML/MIN; Glucose 215 MG/DL (74-106); Osmolality,Calculated 305.7 MOS/KG (273-304); Potassium 4.7 MMOL/L (3.5-5.1); Sodium 145 MMOL/L (136-145); Total Protein 6.2 G/DL (6.4-8.3); Uric Acid 7.6 MG/DL (2.6-6.0)
[2020-06-23 07:13] LABS: Band Neutrophils 1 % (0-10); Lymphocytes 6 % (20-55); Metamyelocytes 1 %; Platelet Estimate Normal; Segmented Neutrophils 91 % (50-85); Total Cells Counted 100
[2020-06-23] MEDS: INSULIN LISPRO 100 UNIT/ML SUBCUT SCH ×4 (08:35→21:48)
[2020-06-23] MEDS ORDERED: ETOPOSIDE 150 MG in SODIUM CHLORIDE 0.9% 500 ML IV ONE (10:00)
[2020-06-23] MEDS: GRANISETRON 1 MG/1 ML VIAL IV SCH (10:26)
[2020-06-23] MEDS: DEXAMETHASONE INJ 20 MG in SODIUM CHLORIDE 0.9% 50 ML IV SCH (10:28)
[2020-06-23] MEDS ORDERED: GRANISETRON 1 MG/1 ML VIAL IV ONE (12:00)
[2020-06-23] MEDS ORDERED: DEXAMETHASONE INJ 20 MG in SODIUM CHLORIDE 0.9% 50 ML IV ONE (12:30)
[2020-06-23] MEDS ORDERED: ATEZOLIZUMAB 1,200 MG in SODIUM CHLORIDE 0.9% 250 ML IV ONE (13:00)
[2020-06-23] MEDS: ASPIRIN EC 81 MG TABLET PO SCH (14:57)
[2020-06-23] MEDS: LINACLOTIDE 145 MCG CAPSULE PO SCH (14:57)
[2020-06-23] MEDS: METOPROLOL TARTRATE 25 MG TABLET PO SCH ×2 (14:57→21:38)
[2020-06-23] MEDS: PREGABALIN 75 MG CAPSULE PO SCH ×3 (14:57→21:38)
[2020-06-23] MEDS: allopurinoL 300 MG TABLET PO SCH (14:58)
[2020-06-23] MEDS: ASCORBIC ACID 500 MG TABLET PO SCH (14:58)
[2020-06-23] MEDS: CETIRIZINE 10 MG TABLET PO SCH (21:38)
[2020-06-24] MEDS: SODIUM CHLORIDE 0.9% 1,000 ML IV SCH (03:13)
[2020-06-24 05:28] LABS: Basophils % 0.1 % (0.0-0.8); Hematocrit 28.4 VOL% (35.7-47.0); Hemoglobin 9.3 GM/DL (12.0-16.0); Immature Granulocytes % 1.7 %; Immature Granulocytes Absolute 0.21 #; Lymphocytes # 0.7 10*3/uL (1.4-4.0); Lymphocytes % 5.3 % (21.3-54.2); Mean Corpuscular HGB Conc 32.7 GM/DL (32-36); Mean Corpuscular Volume 91.9 FL (87-102); Mean Platelet Volume 11.8 FL (9.6-12.0); NRBC # 0.04 10*3/uL; Neutrophils % 90.9 % (38.7-73.9); Platelet Count 245 T/CUMM (130-400); Red Blood Count 3.09 MC/CUMM (3.8-5.5); Red Cell Distribution Width 15.6 % (9.3-17.3); White Blood Count 12.5 T/CUMM (4-12)
[2020-06-24] MEDS: SODIUM BICARB INJ 50 MEQ in DEXTROSE 5% 1,000 ML IV SCH (05:46)
[2020-06-24 05:59] LABS: Albumin 2.1 G/DL (3.4-5.0); Bilirubin,Total 0.4 MG/DL (0.2-1.0); Calcium 10.3 MG/DL (8.5-10.1); Osmolality,Calculated 302.7 MOS/KG (273-304); Potassium 4.4 MMOL/L (3.5-5.1); Total Protein 6.1 G/DL (6.4-8.3); Uric Acid 6.4 MG/DL (2.6-6.0)
[2020-06-24 06:22] LABS: Band Neutrophils 2 % (0-10); Lymphocytes 7 % (20-55); Segmented Neutrophils 90 % (50-85); Total Cells Counted 100
[2020-06-24 06:24] LABS: Hypochromasia 1+; Microcytosis 1+
[2020-06-24 06:25] LABS: Ovalocytes Few; Platelet Estimate Normal
[2020-06-24] MEDS ORDERED: LEVOTHYROXINE 75 MCG TABLET PO SCH (06:30)
[2020-06-24] MEDS: INSULIN LISPRO 100 UNIT/ML SUBCUT SCH ×4 (08:19→23:52)
[2020-06-24] MEDS ORDERED: ZOLEDRONIC ACID 4 MG in PREMIX 1 EACH IV ONE (09:00)
[2020-06-24] MEDS: GRANISETRON 1 MG/1 ML VIAL IV SCH (12:18)
[2020-06-24] MEDS: MORPHINE 4 MG/1 ML VIAL IV PRN ×2 (12:20→16:52)
[2020-06-24] MEDS: ASCORBIC ACID 500 MG TABLET PO SCH (12:23)
[2020-06-24] MEDS: allopurinoL 300 MG TABLET PO SCH (12:23)
[2020-06-24] MEDS: PREGABALIN 75 MG CAPSULE PO SCH (12:24)
[2020-06-24] MEDS: ASPIRIN EC 81 MG TABLET PO SCH (12:24)
[2020-06-24] MEDS ORDERED: ENOXAPARIN 30 MG/0.3 ML SYRINGE SUBCUT SCH (14:00)
[2020-06-24] MEDS: DEXAMETHASONE INJ 20 MG in SODIUM CHLORIDE 0.9% 50 ML IV SCH (14:28)
[2020-06-24] MEDS: METOPROLOL TARTRATE 25 MG TABLET PO SCH ×2 (14:29→23:53)
[2020-06-24] MEDS: LINACLOTIDE 145 MCG CAPSULE PO SCH (14:40)
[2020-06-24] MEDS: SODIUM CHLORIDE 0.45% 1,000 ML IV SCH (15:40)
[2020-06-24] MEDS: PIPERACILLIN/TAZOBACTAM 3,375 MG in SODIUM CHLORIDE 0.9% 100 ML IV SCH ×2 (16:51→22:41)
[2020-06-24] MEDS: ERGOCALCIFEROL 50,000 UNIT CAPSULE PO SCH (17:50)
[2020-06-25] MEDS: MORPHINE 4 MG/1 ML VIAL IV PRN ×4 (05:28→22:17)
[2020-06-25] MEDS: PIPERACILLIN/TAZOBACTAM 3,375 MG in SODIUM CHLORIDE 0.9% 100 ML IV SCH ×3 (05:28→21:55)
[2020-06-25 05:50] LABS: Basophils % 0.1 % (0.0-0.8); Hematocrit 31.5 VOL% (35.7-47.0); Hemoglobin 9.9 GM/DL (12.0-16.0); Immature Granulocytes % 1.4 %; Immature Granulocytes Absolute 0.13 #; Lymphocytes # 0.4 10*3/uL (1.4-4.0); Lymphocytes % 4.7 % (21.3-54.2); Mean Corpuscular HGB Conc 31.4 GM/DL (32-36); Mean Corpuscular Volume 94.6 FL (87-102); Mean Platelet Volume 11.4 FL (9.6-12.0); Monocytes % 0.6 % (1.7-12.7); NRBC # 0.02 10*3/uL; Neutrophils % 93.2 % (38.7-73.9); Platelet Count 215 T/CUMM (130-400); Red Blood Count 3.33 MC/CUMM (3.8-5.5); Red Cell Distribution Width 15.7 % (9.3-17.3); White Blood Count 9.4 T/CUMM (4-12)
[2020-06-25 06:32] LABS: Amorphous Crystals,Urine Few /HPF (Few); Bacteria,Urine Occasional /HPF (Few); Bilirubin,Urine Negative (Negative); Blood, Urine Negative (Negative); Glucose,Urine (UA) Negative (Negative); Ketones,Urine Negative (Negative); Nitrite,Urine Negative (Negative); Protein,Urine Negative; Squamous Epithelial Cell,Urine Occasional /HPF (0-10); Urine Appearance CLOUDY (Clear); Urine Color Colorless (Yellow); Urine Specific Gravity 1.021 (1.001-1.035); Urine Urobilinogen < 2.0 EU/DL (0.2-1.0)
[2020-06-25 06:47] LABS: Band Neutrophils 1 % (0-10); Hypochromasia 2+; Lymphocytes 4 % (20-55); Ovalocytes Few; Platelet Estimate Normal; Schistocytes Slight; Segmented Neutrophils 95 % (50-85); Total Cells Counted 100
[2020-06-25 06:50] LABS: Albumin 2.1 G/DL (3.4-5.0); Bilirubin,Total 0.8 MG/DL (0.2-1.0); Potassium 4.5 MMOL/L (3.5-5.1); Total Protein 5.9 G/DL (6.4-8.3); Uric Acid 5.6 MG/DL (2.6-6.0)
[2020-06-25] MEDS: SODIUM CHLORIDE 0.45% 1,000 ML IV SCH ×3 (07:18→22:15)
[2020-06-25] MEDS: INSULIN LISPRO 100 UNIT/ML SUBCUT SCH ×3 (07:37→15:54)
[2020-06-25] MEDS: GRANISETRON 1 MG/1 ML VIAL IV SCH (08:19)
[2020-06-25] MEDS: LOSARTAN 25 MG TABLET PO SCH (08:19)
[2020-06-25] MEDS: allopurinoL 300 MG TABLET PO SCH (08:20)
[2020-06-25] MEDS: ASPIRIN EC 81 MG TABLET PO SCH (08:20)
[2020-06-25] MEDS: LINACLOTIDE 145 MCG CAPSULE PO SCH (08:20)
[2020-06-25] MEDS: METOPROLOL TARTRATE 25 MG TABLET PO SCH ×2 (08:20→21:56)
[2020-06-25] MEDS: DEXAMETHASONE INJ 20 MG in SODIUM CHLORIDE 0.9% 50 ML IV SCH (10:21)
[2020-06-25] MEDS: ENOXAPARIN 40 MG/0.4 ML SYRINGE SUBCUT SCH (13:55)
[2020-06-25] MEDS ORDERED: ALBUTEROL INHALER 18 GM INH SCH (15:00)
[2020-06-26] MEDS: MORPHINE 4 MG/1 ML VIAL IV PRN ×4 (05:48→16:06)
[2020-06-26 06:09] LABS: Hematocrit 31.3 VOL% (35.7-47.0); Hemoglobin 9.8 GM/DL (12.0-16.0); Immature Granulocytes % 0.9 %; Immature Granulocytes Absolute 0.07 #; Lymphocytes # 0.5 10*3/uL (1.4-4.0); Lymphocytes % 5.6 % (21.3-54.2); Mean Corpuscular HGB Conc 31.3 GM/DL (32-36); Mean Corpuscular Volume 93.7 FL (87-102); Mean Platelet Volume 11.1 FL (9.6-12.0); Monocytes % 0.4 % (1.7-12.7); Neutrophils % 93.1 % (38.7-73.9); Platelet Count 235 T/CUMM (130-400); Red Blood Count 3.34 MC/CUMM (3.8-5.5); Red Cell Distribution Width 15.4 % (9.3-17.3)
[2020-06-26 06:24] LABS: Albumin 2.2 G/DL (3.4-5.0); Bilirubin,Total 0.4 MG/DL (0.2-1.0); Calcium 9.3 MG/DL (8.5-10.1); Osmolality,Calculated 297.8 MOS/KG (273-304); Potassium 4.2 MMOL/L (3.5-5.1); Total Protein 5.7 G/DL (6.4-8.3); Uric Acid 4.3 MG/DL (2.6-6.0)
[2020-06-26] MEDS: PIPERACILLIN/TAZOBACTAM 3,375 MG in SODIUM CHLORIDE 0.9% 100 ML IV SCH ×3 (06:45→21:02)
[2020-06-26] MEDS: SODIUM CHLORIDE 0.45% 1,000 ML IV SCH (06:45)
[2020-06-26] MEDS: INSULIN LISPRO 100 UNIT/ML SUBCUT SCH ×5 (07:01→21:02)
[2020-06-26 07:20] LABS: Hypochromasia 1+; Microcytosis 1+; Ovalocytes Few; Target Cells Few
[2020-06-26 07:21] LABS: Platelet Estimate Normal
[2020-06-26 07:59] LABS: Band Neutrophils 1 % (0-10); Lymphocytes 1 % (20-55); Segmented Neutrophils 97 % (50-85); Total Cells Counted 100
[2020-06-26] MEDS: GRANISETRON 1 MG/1 ML VIAL IV SCH (08:29)
[2020-06-26] MEDS: LOSARTAN 25 MG TABLET PO SCH (08:29)
[2020-06-26] MEDS: allopurinoL 300 MG TABLET PO SCH (08:30)
[2020-06-26] MEDS: LINACLOTIDE 145 MCG CAPSULE PO SCH (08:30)
[2020-06-26] MEDS: METOPROLOL TARTRATE 25 MG TABLET PO SCH ×2 (08:30→21:03)
[2020-06-26] MEDS: ASPIRIN EC 81 MG TABLET PO SCH (08:30)
[2020-06-26] MEDS: ONDANSETRON 4 MG/2 ML VIAL IV PRN (15:59)
[2020-06-26] MEDS: ENOXAPARIN 40 MG/0.4 ML SYRINGE SUBCUT SCH (17:26)
[2020-06-27] MEDS: MORPHINE 4 MG/1 ML VIAL IV PRN ×5 (02:01→16:54)
[2020-06-27] MEDS: ONDANSETRON 4 MG/2 ML VIAL IV PRN (04:16)
[2020-06-27] MEDS: LEVOTHYROXINE 25 MCG TABLET PO SCH (06:44)
[2020-06-27] MEDS: PIPERACILLIN/TAZOBACTAM 3,375 MG in SODIUM CHLORIDE 0.9% 100 ML IV SCH ×3 (06:44→21:08)
[2020-06-27 07:44] LABS: Basophils % 0.1 % (0.0-0.8); Eosinophils % 0.1 % (0.00-10.9); Hematocrit 28.1 VOL% (35.7-47.0); Hemoglobin 9.1 GM/DL (12.0-16.0); Immature Granulocytes % 1.2 %; Immature Granulocytes Absolute 0.09 #; Lymphocytes # 0.7 10*3/uL (1.4-4.0); Lymphocytes % 9.9 % (21.3-54.2); Mean Corpuscular HGB Conc 32.4 GM/DL (32-36); Mean Corpuscular Volume 92.7 FL (87-102); Mean Platelet Volume 11.8 FL (9.6-12.0); Monocytes % 0.3 % (1.7-12.7); Neutrophils % 88.4 % (38.7-73.9); Platelet Count 237 T/CUMM (130-400); Red Blood Count 3.03 MC/CUMM (3.8-5.5); Red Cell Distribution Width 15.5 % (9.3-17.3); White Blood Count 7.3 T/CUMM (4-12)
[2020-06-27 08:06] LABS: Albumin 2.1 G/DL (3.4-5.0); Bilirubin,Total 0.4 MG/DL (0.2-1.0); Calcium 8.5 MG/DL (8.5-10.1); Osmolality,Calculated 297.7 MOS/KG (273-304); Potassium 3.9 MMOL/L (3.5-5.1); Total Protein 5.2 G/DL (6.4-8.3); Uric Acid 4.4 MG/DL (2.6-6.0)
[2020-06-27 08:16] LABS: Hypochromasia 1+; Lymphocytes 3 % (20-55); Microcytosis 1+; Segmented Neutrophils 96 % (50-85); Total Cells Counted 100
[2020-06-27 08:17] LABS: Ovalocytes Slight; Platelet Estimate Normal
[2020-06-27] MEDS: INSULIN LISPRO 100 UNIT/ML SUBCUT SCH ×4 (08:26→21:07)
[2020-06-27] MEDS: GRANISETRON 1 MG/1 ML VIAL IV SCH (09:06)
[2020-06-27] MEDS: allopurinoL 300 MG TABLET PO SCH (09:07)
[2020-06-27] MEDS: ASPIRIN EC 81 MG TABLET PO SCH (09:07)
[2020-06-27] MEDS: LOSARTAN 25 MG TABLET PO SCH (09:07)
[2020-06-27] MEDS: SODIUM CHLORIDE 0.45% 1,000 ML IV SCH (09:08)
[2020-06-27] MEDS: LINACLOTIDE 145 MCG CAPSULE PO SCH (11:30)
[2020-06-27] MEDS: METOPROLOL TARTRATE 25 MG TABLET PO SCH ×2 (11:30→21:07)
[2020-06-27] MEDS: DEXTROSE 5% NACL 0.45% 1,000 ML IV SCH (15:21)
[2020-06-27] MEDS: ENOXAPARIN 40 MG/0.4 ML SYRINGE SUBCUT SCH (15:21)
[2020-06-28] MEDS: MORPHINE 4 MG/1 ML VIAL IV PRN ×2 (01:03→05:17)
[2020-06-28] MEDS: DEXTROSE 5% NACL 0.45% 1,000 ML IV SCH (05:23)
[2020-06-28] MEDS: PIPERACILLIN/TAZOBACTAM 3,375 MG in SODIUM CHLORIDE 0.9% 100 ML IV SCH ×3 (05:24→21:48)
[2020-06-28] MEDS: SODIUM CHLORIDE 0.45% 1,000 ML IV SCH (05:35)
[2020-06-28] MEDS: LEVOTHYROXINE 25 MCG TABLET PO SCH (05:35)
[2020-06-28 05:50] LABS: Basophils % 0.2 % (0.0-0.8); Eosinophils % 0.3 % (0.00-10.9); Hematocrit 30.5 VOL% (35.7-47.0); Hemoglobin 9.4 GM/DL (12.0-16.0); Immature Granulocytes % 2.7 %; Immature Granulocytes Absolute 0.18 #; Lymphocytes # 0.8 10*3/uL (1.4-4.0); Lymphocytes % 11.6 % (21.3-54.2); Mean Corpuscular HGB Conc 30.8 GM/DL (32-36); Mean Corpuscular Volume 96.5 FL (87-102); Mean Platelet Volume 11.9 FL (9.6-12.0); Monocytes % 0.8 % (1.7-12.7); NRBC # 0.02 10*3/uL; Neutrophils % 84.4 % (38.7-73.9); Platelet Count 200 T/CUMM (130-400); Red Blood Count 3.16 MC/CUMM (3.8-5.5); Red Cell Distribution Width 15.8 % (9.3-17.3); White Blood Count 6.6 T/CUMM (4-12)
[2020-06-28 05:55] LABS: Band Neutrophils 1 % (0-10); Hypochromasia 1+; Lymphocytes 17 % (20-55); Microcytosis 1+; Platelet Estimate Adequate; Segmented Neutrophils 82 % (50-85); Total Cells Counted 100
[2020-06-28 06:16] LABS: Albumin 1.9 G/DL (3.4-5.0); Bilirubin,Total 0.6 MG/DL (0.2-1.0); Calcium 8.8 MG/DL (8.5-10.1); Osmolality,Calculated 301.4 MOS/KG (273-304); Potassium 3.7 MMOL/L (3.5-5.1); Total Protein 5.2 G/DL (6.4-8.3); Uric Acid 3.7 MG/DL (2.6-6.0)
[2020-06-28] MEDS: allopurinoL 300 MG TABLET PO SCH (09:12)
[2020-06-28] MEDS: GRANISETRON 1 MG/1 ML VIAL IV SCH (09:12)
[2020-06-28] MEDS: ASPIRIN EC 81 MG TABLET PO SCH (09:12)
[2020-06-28] MEDS: METOPROLOL TARTRATE 25 MG TABLET PO SCH ×2 (09:12→20:49)
[2020-06-28] MEDS: INSULIN LISPRO 100 UNIT/ML SUBCUT SCH ×4 (09:13→21:31)
[2020-06-28] MEDS: LINACLOTIDE 145 MCG CAPSULE PO SCH (09:19)
[2020-06-28] MEDS: ENOXAPARIN 40 MG/0.4 ML SYRINGE SUBCUT SCH (13:54)
[2020-06-28] MEDS ORDERED: TUBERCULIN SKIN TEST 0.1 ML SYRINGE INTRADERM ONE (14:15)
[2020-06-28] MEDS: DEXTROSE 5% 1,000 ML IV SCH (16:53)
[2020-06-28] MEDS: ALBUTEROL/IPRATROPIUM 3 ML NEB RESP TX PRN (19:40)
[2020-06-29] MEDS: LEVOTHYROXINE 25 MCG TABLET PO SCH (05:34)
[2020-06-29] MEDS: PIPERACILLIN/TAZOBACTAM 3,375 MG in SODIUM CHLORIDE 0.9% 100 ML IV SCH ×2 (05:35→15:34)
[2020-06-29] MEDS: INSULIN LISPRO 100 UNIT/ML SUBCUT SCH ×4 (06:52→20:54)
[2020-06-29 07:55] LABS: Basophils % 0.2 % (0.0-0.8); Eosinophils % 0.6 % (0.00-10.9); Hematocrit 26.3 VOL% (35.7-47.0); Hemoglobin 8.5 GM/DL (12.0-16.0); Immature Granulocytes Absolute 0.25 #; Lymphocytes # 0.7 10*3/uL (1.4-4.0); Lymphocytes % 13.4 % (21.3-54.2); Mean Corpuscular HGB Conc 32.3 GM/DL (32-36); Mean Platelet Volume 11.3 FL (9.6-12.0); Monocytes % 2.6 % (1.7-12.7); NRBC # 0.02 10*3/uL; Neutrophils % 78.2 % (38.7-73.9); Platelet Count 191 T/CUMM (130-400); Red Blood Count 2.86 MC/CUMM (3.8-5.5); Red Cell Distribution Width 15.4 % (9.3-17.3)
[2020-06-29] MEDS ORDERED: DOXYCYCLINE HYCLATE INJ 200 MG, LIDOCAINE 1% INJ 20 ML in STERILE WATER INJ 30 ML INTRAPLEUR ONE (08:00)
[2020-06-29] MEDS ORDERED: SODIUM CHLORIDE 0.9% 1,000 ML IV PRN (08:16)
[2020-06-29 08:19] LABS: Albumin 1.9 G/DL (3.4-5.0); Bilirubin,Total 0.5 MG/DL (0.2-1.0); Calcium 8.1 MG/DL (8.5-10.1); Osmolality,Calculated 296.6 MOS/KG (273-304); Potassium 3.4 MMOL/L (3.5-5.1); Total Protein 5.2 G/DL (6.4-8.3)
[2020-06-29] MEDS: METOPROLOL TARTRATE 25 MG TABLET PO SCH ×2 (10:09→20:54)
[2020-06-29] MEDS: ASPIRIN EC 81 MG TABLET PO SCH (10:09)
[2020-06-29] MEDS: FLUCONAZOLE 100 MG TABLET PO SCH (10:10)
[2020-06-29] MEDS: allopurinoL 300 MG TABLET PO SCH (10:11)
[2020-06-29] MEDS: LINACLOTIDE 145 MCG CAPSULE PO SCH (10:19)
[2020-06-29] MEDS: MORPHINE 4 MG/1 ML VIAL IV PRN ×2 (11:42→16:27)
[2020-06-29] MEDS ORDERED: POTASSIUM CHLORIDE 20 MEQ/15 ML UDCUP PO PRN (12:06)
[2020-06-29] MEDS: ENOXAPARIN 40 MG/0.4 ML SYRINGE SUBCUT SCH (15:31)
[2020-06-29] MEDS: DEXTROSE 5% 1,000 ML IV SCH (20:26)
[2020-06-30] MEDS: MORPHINE 4 MG/1 ML VIAL IV PRN ×7 (01:06→22:58)
[2020-06-30] MEDS: PIPERACILLIN/TAZOBACTAM 3,375 MG in SODIUM CHLORIDE 0.9% 100 ML IV SCH ×3 (05:13→22:06)
[2020-06-30] MEDS: LEVOTHYROXINE 25 MCG TABLET PO SCH (05:41)
[2020-06-30 05:47] LABS: Basophils % 0.6 % (0.0-0.8); Eosinophils % 0.9 % (0.00-10.9); Hematocrit 34.5 VOL% (35.7-47.0); Immature Granulocytes % 7.2 %; Immature Granulocytes Absolute 0.24 #; Lymphocytes # 0.7 10*3/uL (1.4-4.0); Lymphocytes % 20.8 % (21.3-54.2); Mean Corpuscular HGB Conc 32.5 GM/DL (32-36); Mean Corpuscular Volume 95.6 FL (87-102); Monocytes % 6.6 % (1.7-12.7); NRBC # 0.05 10*3/uL; Neutrophils % 63.9 % (38.7-73.9)
[2020-06-30 06:05] LABS: Red Blood Count 3.61 MC/CUMM (3.8-5.5); White Blood Count 3.3 T/CUMM (4-12)
[2020-06-30 06:06] LABS: Hemoglobin 11.2 GM/DL (12.0-16.0); Platelet Count 147 T/CUMM (130-400)
[2020-06-30 06:23] LABS: Band Neutrophils 1 % (0-10); Eosinophils 2 % (0-10); Lymphocytes 24 % (20-55); Nucleated Red Blood Cells 1 (0-5); Platelet Estimate Adequate; Segmented Neutrophils 71 % (50-85); Total Cells Counted 100
[2020-06-30 06:24] LABS: Atypical Lymphocytes Few; Hypochromasia Slight; Microcytosis Slight
[2020-06-30 06:42] LABS: Bilirubin,Total 0.5 MG/DL (0.2-1.0); Calcium 8.3 MG/DL (8.5-10.1); Osmolality,Calculated 294.4 MOS/KG (273-304); Potassium 3.3 MMOL/L (3.5-5.1); Total Protein 5.4 G/DL (6.4-8.3)
[2020-06-30] MEDS ORDERED: DOXYCYCLINE HYCLATE INJ 200 MG, LIDOCAINE 1% INJ 20 ML in STERILE WATER INJ 30 ML INTRAPLEUR ONE (08:00)
[2020-06-30] MEDS: INSULIN LISPRO 100 UNIT/ML SUBCUT SCH ×3 (08:24→21:22)
[2020-06-30] MEDS: ASPIRIN EC 81 MG TABLET PO SCH (08:43)
[2020-06-30] MEDS: allopurinoL 300 MG TABLET PO SCH (08:44)
[2020-06-30] MEDS: FLUCONAZOLE 100 MG TABLET PO SCH (08:44)
[2020-06-30] MEDS: METOPROLOL TARTRATE 25 MG TABLET PO SCH ×2 (08:44→20:26)
[2020-06-30] MEDS: LINACLOTIDE 145 MCG CAPSULE PO SCH (16:05)
[2020-06-30] MEDS: ENOXAPARIN 40 MG/0.4 ML SYRINGE SUBCUT SCH (17:09)
[2020-07-01 05:24] LABS: Basophils % 0.4 % (0.0-0.8); Eosinophils % 0.4 % (0.00-10.9); Hematocrit 32.4 VOL% (35.7-47.0); Hemoglobin 10.7 GM/DL (12.0-16.0); Immature Granulocytes % 9.4 %; Immature Granulocytes Absolute 0.26 #; Lymphocytes # 0.6 10*3/uL (1.4-4.0); Lymphocytes % 20.5 % (21.3-54.2); Mean Corpuscular Volume 94.2 FL (87-102); NRBC # 0.08 10*3/uL; Neutrophils % 60.3 % (38.7-73.9); Platelet Count 135 T/CUMM (130-400); Red Blood Count 3.44 MC/CUMM (3.8-5.5); Red Cell Distribution Width 16.1 % (9.3-17.3); White Blood Count 2.8 T/CUMM (4-12)
[2020-07-01] MEDS: LEVOTHYROXINE 25 MCG TABLET PO SCH (05:29)
[2020-07-01] MEDS: PIPERACILLIN/TAZOBACTAM 3,375 MG in SODIUM CHLORIDE 0.9% 100 ML IV SCH ×2 (05:29→15:44)
[2020-07-01 05:49] LABS: Albumin 1.8 G/DL (3.4-5.0); Bilirubin,Total 1.1 MG/DL (0.2-1.0); Calcium 8.1 MG/DL (8.5-10.1); Osmolality,Calculated 289.7 MOS/KG (273-304)
[2020-07-01 06:06] LABS: Atypical Lymphocytes Few; Eosinophils 1 % (0-10); Hypochromasia 1+; Lymphocytes 26 % (20-55); Microcytosis Slight; Nucleated Red Blood Cells 1 (0-5); Platelet Estimate Adequate; Segmented Neutrophils 69 % (50-85); Total Cells Counted 100
[2020-07-01] MEDS: MORPHINE 4 MG/1 ML VIAL IV PRN ×5 (06:16→22:08)
[2020-07-01] MEDS: ASPIRIN EC 81 MG TABLET PO SCH (08:55)
[2020-07-01] MEDS: FLUCONAZOLE 100 MG TABLET PO SCH (08:56)
[2020-07-01] MEDS: allopurinoL 300 MG TABLET PO SCH (08:56)
[2020-07-01] MEDS: METOPROLOL TARTRATE 25 MG TABLET PO SCH ×2 (08:56→20:58)
[2020-07-01] MEDS: LINACLOTIDE 145 MCG CAPSULE PO SCH (09:01)
[2020-07-01] MEDS: POTASSIUM CHLORIDE RIDER 20 MEQ in PREMIX 1 EACH IV PRN ×2 (09:27→12:32)
[2020-07-01] MEDS: INSULIN LISPRO 100 UNIT/ML SUBCUT SCH ×3 (12:37→20:58)
[2020-07-01] MEDS: ENOXAPARIN 40 MG/0.4 ML SYRINGE SUBCUT SCH (15:44)
[2020-07-01] MEDS: DEXTROSE 5% 1,000 ML IV SCH ×2 (15:44→21:54)
[2020-07-01] MEDS: POTASSIUM CHLORIDE RIDER 10 MEQ in PREMIX 1 EACH IV PRN (15:45)
[2020-07-02] MEDS: MORPHINE 4 MG/1 ML VIAL IV PRN ×6 (03:36→19:37)
[2020-07-02 05:44] LABS: Basophils % 0.6 % (0.0-0.8); Eosinophils % 0.3 % (0.00-10.9); Hemoglobin 10.6 GM/DL (12.0-16.0); Immature Granulocytes % 9.3 %; Immature Granulocytes Absolute 0.32 #; Lymphocytes # 0.6 10*3/uL (1.4-4.0); Lymphocytes % 17.4 % (21.3-54.2); Mean Corpuscular HGB Conc 33.1 GM/DL (32-36); Mean Corpuscular Volume 93.6 FL (87-102); Monocytes % 10.5 % (1.7-12.7); NRBC # 0.11 10*3/uL; Neutrophils % 61.9 % (38.7-73.9); Platelet Count 118 T/CUMM (130-400); Red Blood Count 3.42 MC/CUMM (3.8-5.5); Red Cell Distribution Width 16.5 % (9.3-17.3); White Blood Count 3.4 T/CUMM (4-12)
[2020-07-02] MEDS: LEVOTHYROXINE 25 MCG TABLET PO SCH (05:56)
[2020-07-02 06:25] LABS: Albumin 1.9 G/DL (3.4-5.0); Bilirubin,Total 0.7 MG/DL (0.2-1.0); Calcium 7.8 MG/DL (8.5-10.1); Osmolality,Calculated 282.1 MOS/KG (273-304); Potassium 3.2 MMOL/L (3.5-5.1)
[2020-07-02 08:08] LABS: Band Neutrophils 7 % (0-10); Eosinophils 2 % (0-10); Lymphocytes 17 % (20-55); Metamyelocytes 2 %; Myelocytes 2 %; Nucleated Red Blood Cells 2 (0-5); Segmented Neutrophils 63 % (50-85); Total Cells Counted 100
[2020-07-02 08:09] LABS: Hypochromasia 1+; Microcytosis 1+
[2020-07-02] MEDS: LINACLOTIDE 145 MCG CAPSULE PO SCH (08:26)
[2020-07-02] MEDS: ASPIRIN EC 81 MG TABLET PO SCH (08:26)
[2020-07-02] MEDS: METOPROLOL TARTRATE 25 MG TABLET PO SCH ×3 (08:27→20:07)
[2020-07-02] MEDS: allopurinoL 300 MG TABLET PO SCH (08:27)
[2020-07-02] MEDS: FLUCONAZOLE 100 MG TABLET PO SCH (08:27)
[2020-07-02] MEDS: POTASSIUM CHLORIDE RIDER 10 MEQ in PREMIX 1 EACH IV PRN ×3 (10:20→13:44)
[2020-07-02] MEDS: INSULIN LISPRO 100 UNIT/ML SUBCUT SCH ×4 (10:38→20:24)
[2020-07-02] MEDS: FILGRASTIM-SNDZ 300 MCG/0.5 ML SYRINGE SUBCUT SCH (11:39)
[2020-07-02] MEDS: DEXTROSE 5% 1,000 ML IV SCH (13:46)
[2020-07-02] MEDS: ENOXAPARIN 40 MG/0.4 ML SYRINGE SUBCUT SCH (13:54)
[2020-07-03] MEDS: MORPHINE 4 MG/1 ML VIAL IV PRN ×2 (04:15→19:26)
[2020-07-03 06:19] LABS: Basophils % 0.7 % (0.0-0.8); Eosinophils % 0.2 % (0.00-10.9); Hematocrit 33.5 VOL% (35.7-47.0); Hemoglobin 10.7 GM/DL (12.0-16.0); Immature Granulocytes % 8.1 %; Immature Granulocytes Absolute 0.33 #; Lymphocytes # 0.7 10*3/uL (1.4-4.0); Mean Corpuscular HGB Conc 31.9 GM/DL (32-36); Mean Corpuscular Volume 95.2 FL (87-102); Mean Platelet Volume 12.5 FL (9.6-12.0); Monocytes % 10.1 % (1.7-12.7); NRBC # 0.08 10*3/uL; Neutrophils % 63.9 % (38.7-73.9); Platelet Count 141 T/CUMM (130-400); Red Blood Count 3.52 MC/CUMM (3.8-5.5); Red Cell Distribution Width 16.5 % (9.3-17.3); White Blood Count 4.1 T/CUMM (4-12)
[2020-07-03] MEDS: LEVOTHYROXINE 25 MCG TABLET PO SCH (06:34)
[2020-07-03 06:40] LABS: Albumin 1.9 G/DL (3.4-5.0); Bilirubin,Total 0.6 MG/DL (0.2-1.0); Calcium 7.9 MG/DL (8.5-10.1); Osmolality,Calculated 278.5 MOS/KG (273-304); Potassium 3.7 MMOL/L (3.5-5.1); Total Protein 5.3 G/DL (6.4-8.3)
[2020-07-03 07:01] LABS: Band Neutrophils 4 % (0-10); Lymphocytes 9 % (20-55); Metamyelocytes 2 %; Platelet Estimate Adequate; Polychromasia Slight; Segmented Neutrophils 82 % (50-85); Total Cells Counted 100
[2020-07-03] MEDS: INSULIN LISPRO 100 UNIT/ML SUBCUT SCH ×4 (08:57→22:40)
[2020-07-03] MEDS: allopurinoL 300 MG TABLET PO SCH (08:59)
[2020-07-03] MEDS: ASPIRIN EC 81 MG TABLET PO SCH (08:59)
[2020-07-03] MEDS: FLUCONAZOLE 100 MG TABLET PO SCH (08:59)
[2020-07-03] MEDS: LINACLOTIDE 145 MCG CAPSULE PO SCH (08:59)
[2020-07-03] MEDS: METOPROLOL TARTRATE 25 MG TABLET PO SCH ×2 (09:10→21:45)
[2020-07-03] MEDS: DEXTROSE 5% 1,000 ML IV SCH (09:11)
[2020-07-03] MEDS: FILGRASTIM-SNDZ 300 MCG/0.5 ML SYRINGE SUBCUT SCH (15:02)
[2020-07-03] MEDS: POTASSIUM CHLORIDE RIDER 10 MEQ in PREMIX 1 EACH IV PRN ×2 (15:03→16:09)
[2020-07-03] MEDS: ENOXAPARIN 40 MG/0.4 ML SYRINGE SUBCUT SCH (15:05)
[2020-07-04] MEDS: DEXTROSE 5% 1,000 ML IV SCH ×2 (01:56→17:45)
[2020-07-04 04:09] LABS: Basophils % 0.7 % (0.0-0.8); Eosinophils % 0.2 % (0.00-10.9); Hematocrit 32.6 VOL% (35.7-47.0); Hemoglobin 10.8 GM/DL (12.0-16.0); Immature Granulocytes % 10.1 %; Immature Granulocytes Absolute 0.45 #; Lymphocytes # 0.7 10*3/uL (1.4-4.0); Lymphocytes % 14.6 % (21.3-54.2); Mean Corpuscular HGB Conc 33.1 GM/DL (32-36); Mean Corpuscular Volume 93.7 FL (87-102); Mean Platelet Volume 11.7 FL (9.6-12.0); NRBC # 0.05 10*3/uL; Neutrophils % 65.4 % (38.7-73.9); Platelet Count 166 T/CUMM (130-400); Red Blood Count 3.48 MC/CUMM (3.8-5.5); Red Cell Distribution Width 16.3 % (9.3-17.3); White Blood Count 4.5 T/CUMM (4-12)
[2020-07-04 05:03] LABS: Albumin 1.9 G/DL (3.4-5.0); Bilirubin,Total 0.4 MG/DL (0.2-1.0); Calcium 7.8 MG/DL (8.5-10.1); Osmolality,Calculated 276.7 MOS/KG (273-304); Potassium 3.9 MMOL/L (3.5-5.1); Total Protein 5.2 G/DL (6.4-8.3)
[2020-07-04] MEDS: MORPHINE 4 MG/1 ML VIAL IV PRN ×2 (05:50→18:06)
[2020-07-04] MEDS: LEVOTHYROXINE 25 MCG TABLET PO SCH (05:50)
[2020-07-04 07:09] LABS: Lymphocytes 18 % (20-55); Nucleated Red Blood Cells 1 (0-5); Total Cells Counted 100
[2020-07-04 07:11] LABS: Metamyelocytes 10 %; Platelet Estimate Normal; Segmented Neutrophils 61 % (50-85)
[2020-07-04 07:12] LABS: Anisocytosis 1+; Macrocytosis 1+; Pappenheimer Bodies Few; Polychromasia 1+
[2020-07-04] MEDS: INSULIN LISPRO 100 UNIT/ML SUBCUT SCH ×3 (08:33→17:37)
[2020-07-04] MEDS: FLUCONAZOLE 100 MG TABLET PO SCH (08:34)
[2020-07-04] MEDS: LINACLOTIDE 145 MCG CAPSULE PO SCH (08:34)
[2020-07-04] MEDS: ASPIRIN EC 81 MG TABLET PO SCH (08:34)
[2020-07-04] MEDS: allopurinoL 300 MG TABLET PO SCH (08:34)
[2020-07-04] MEDS: METOPROLOL TARTRATE 25 MG TABLET PO SCH ×2 (08:35→21:47)
[2020-07-04] MEDS: POTASSIUM CHLORIDE RIDER 10 MEQ in PREMIX 1 EACH IV PRN (08:36)
[2020-07-04] MEDS ORDERED: FUROSEMIDE 40 MG/4 ML VIAL IV ONE (11:18)
[2020-07-04] MEDS: FILGRASTIM-SNDZ 300 MCG/0.5 ML SYRINGE SUBCUT SCH (12:51)
[2020-07-04] MEDS: ENOXAPARIN 40 MG/0.4 ML SYRINGE SUBCUT SCH (13:21)
[2020-07-05] MEDS: INSULIN LISPRO 100 UNIT/ML SUBCUT SCH ×5 (00:25→20:52)
[2020-07-05] MEDS: LEVOTHYROXINE 25 MCG TABLET PO SCH (05:32)
[2020-07-05 06:25] LABS: Basophils % 0.6 % (0.0-0.8); Eosinophils % 0.2 % (0.00-10.9); Hematocrit 31.6 VOL% (35.7-47.0); Hemoglobin 10.5 GM/DL (12.0-16.0); Immature Granulocytes % 9.8 %; Immature Granulocytes Absolute 0.53 #; Lymphocytes # 0.9 10*3/uL (1.4-4.0); Lymphocytes % 16.5 % (21.3-54.2); Mean Corpuscular HGB Conc 33.2 GM/DL (32-36); Mean Corpuscular Volume 91.6 FL (87-102); Mean Platelet Volume 10.9 FL (9.6-12.0); Monocytes % 9.6 % (1.7-12.7); NRBC # 0.08 10*3/uL; Neutrophils % 63.3 % (38.7-73.9); Platelet Count 182 T/CUMM (130-400); Red Blood Count 3.45 MC/CUMM (3.8-5.5); Red Cell Distribution Width 16.6 % (9.3-17.3); White Blood Count 5.4 T/CUMM (4-12)
[2020-07-05 06:40] LABS: Albumin 1.8 G/DL (3.4-5.0); Bilirubin,Total 0.6 MG/DL (0.2-1.0); Calcium 7.9 MG/DL (8.5-10.1); Osmolality,Calculated 273.8 MOS/KG (273-304); Potassium 4.4 MMOL/L (3.5-5.1); Total Protein 4.6 G/DL (6.4-8.3)
[2020-07-05 06:53] LABS: Band Neutrophils 2 % (0-10); Eosinophils 2 % (0-10); Hypochromasia 1+; Lymphocytes 12 % (20-55); Microcytosis 1+; Nucleated Red Blood Cells 2 (0-5); Platelet Estimate Adequate; Segmented Neutrophils 70 % (50-85); Total Cells Counted 100
[2020-07-05 06:54] LABS: Ovalocytes Slight
[2020-07-05] MEDS: FILGRASTIM-SNDZ 300 MCG/0.5 ML SYRINGE SUBCUT SCH (08:46)
[2020-07-05] MEDS: DEXTROSE 5% 1,000 ML IV SCH ×2 (08:46→21:03)
[2020-07-05] MEDS: ASPIRIN EC 81 MG TABLET PO SCH (08:46)
[2020-07-05] MEDS: allopurinoL 300 MG TABLET PO SCH (08:47)
[2020-07-05] MEDS: LINACLOTIDE 145 MCG CAPSULE PO SCH (08:47)
[2020-07-05] MEDS: FLUCONAZOLE 100 MG TABLET PO SCH (08:47)
[2020-07-05] MEDS: METOPROLOL TARTRATE 25 MG TABLET PO SCH ×2 (08:47→21:04)
[2020-07-05] MEDS: MORPHINE 4 MG/1 ML VIAL IV PRN ×3 (12:47→21:04)
[2020-07-05] MEDS: ENOXAPARIN 40 MG/0.4 ML SYRINGE SUBCUT SCH (14:01)
[2020-07-05] MEDS ORDERED: TUBERCULIN SKIN TEST 0.1 ML SYRINGE INTRADERM ONE (14:22)
[2020-07-06] MEDS: LEVOTHYROXINE 25 MCG TABLET PO SCH (05:37)
[2020-07-06 06:42] LABS: Basophils # 0.1 10*3/uL (0.0-0.2); Basophils % 0.6 % (0.0-0.8); Eosinophils % 0.1 % (0.00-10.9); Hematocrit 30.1 VOL% (35.7-47.0); Hemoglobin 10.1 GM/DL (12.0-16.0); Immature Granulocytes % 8.1 %; Immature Granulocytes Absolute 0.66 #; Lymphocytes # 1.1 10*3/uL (1.4-4.0); Lymphocytes % 12.9 % (21.3-54.2); Mean Corpuscular HGB Conc 33.6 GM/DL (32-36); Mean Platelet Volume 11.2 FL (9.6-12.0); Monocytes % 8.1 % (1.7-12.7); NRBC # 0.14 10*3/uL; Neutrophils % 70.2 % (38.7-73.9); Platelet Count 168 T/CUMM (130-400); Red Blood Count 3.27 MC/CUMM (3.8-5.5); Red Cell Distribution Width 16.5 % (9.3-17.3); White Blood Count 8.2 T/CUMM (4-12)
[2020-07-06] MEDS: INSULIN LISPRO 100 UNIT/ML SUBCUT SCH ×3 (06:45→16:46)
[2020-07-06 06:58] LABS: Albumin 1.6 G/DL (3.4-5.0); Bilirubin,Total 0.4 MG/DL (0.2-1.0); Calcium 7.8 MG/DL (8.5-10.1); Osmolality,Calculated 268.4 MOS/KG (273-304); Potassium 4.6 MMOL/L (3.5-5.1)
[2020-07-06 07:08] LABS: Band Neutrophils 4 % (0-10); Hypochromasia 1+; Lymphocytes 7 % (20-55); Microcytosis 1+; Nucleated Red Blood Cells 3 (0-5); Ovalocytes Slight; Platelet Estimate Adequate; Segmented Neutrophils 80 % (50-85); Total Cells Counted 100
[2020-07-06] MEDS: FILGRASTIM-SNDZ 300 MCG/0.5 ML SYRINGE SUBCUT SCH (08:49)
[2020-07-06] MEDS: FLUCONAZOLE 100 MG TABLET PO SCH (10:17)
[2020-07-06] MEDS: allopurinoL 300 MG TABLET PO SCH (10:18)
[2020-07-06] MEDS: ASPIRIN EC 81 MG TABLET PO SCH (10:19)
[2020-07-06] MEDS: METOPROLOL TARTRATE 25 MG TABLET PO SCH (10:29)
[2020-07-06] MEDS: LINACLOTIDE 145 MCG CAPSULE PO SCH (10:30)
[2020-07-06 11:30] VITALS: BP 143/72
[2020-07-06] MEDS: ENOXAPARIN 40 MG/0.4 ML SYRINGE SUBCUT SCH (13:46)
[2020-07-06] MEDS ORDERED: LORazepam 2 MG/1 ML VIAL IV ONE (14:00)
[2020-07-06] MEDS: MORPHINE 4 MG/1 ML VIAL IV PRN (14:10)
[2020-07-06] MEDS: DEXTROSE 5% 1,000 ML IV SCH (18:39)
== END 2020-07-06 21:48 | disposition hospice, home (50) | DRG 180 ==
LOC: N.ED 15:02 → N.EDINP 15:02 → SUATTDRO 20:21 → N.3E 20:47 → SUATTDRO 06-22 13:41
PROVIDERS: ADMIT Family Medicine; ATTEND Internal Medicine